=== PATIENT | male | born 1955 | race Caucasian/White ===

== ENCOUNTER 2019-12-18 09:24 | Inpatient (IN) ==
[2019-12-18] MEDS ORDERED: *HR* HYDROcodone/Acet 5/325 mg TABLET PO PRN (11:26)
[2019-12-18] MEDS ORDERED: Naloxone 0.4 MG/ML INJ IVP PRN (11:26)
[2019-12-18] MEDS ORDERED: Ondansetron 4 MG/2 ML VIAL IVP PRN (11:26)
[2019-12-18] MEDS ORDERED: Ipratropium/Albuterol Neb 3 ML IH PRN (11:49)
[2019-12-18] MEDS ORDERED: Nitroglycerin 0.4 MG TAB.SUBL SL PRN (11:50)
[2019-12-18 12:05] LABS: Basophils # 0.1 K/mcL (0.0-0.2); Eosinophils # 0.1 K/mcL (0.0-0.6); Eosinophils % 1.3 %; Hematocrit 46.5 % (37.5-50.1); Hemoglobin 14.7 g/dL (12.9-16.9); Immature Granulocytes % 0.3 % (0-4); Lymphocytes # 1.4 K/mcL (0.6-4.6); Lymphocytes % 14.1 %; Mean Corpuscular HGB Conc 31.6 g/dL (31.6-35.5); Mean Corpuscular Volume 91.7 fL (83.0-100.0); Mean Platelet Volume 9.9 fL (9.4-12.4); Monocytes % 10.6 %; Neutrophils # 7.2 K/mcL (1.6-8.9); Platelet Count 186 K/mcL (140-400); Red Blood Count 5.07 M/mcL (4.19-5.50); Red Cell Distribution Width 12.7 % (11.5-14.5); Segmented Neutrophils % 72.7 %; White Blood Count 9.9 K/mcL (4.3-11.1)
[2019-12-18] MEDS ORDERED: Sennosides/Docusate Sodium TABLET PO PRN (12:13)
[2019-12-18 12:15] LABS: INR 1.2; Prothrombin Time 14.1 Seconds (9.4-12.1)
[2019-12-18 12:18] LABS: Activated Partial Thrombo Time 33.4 Seconds (26.0-36.0)
[2019-12-18 12:21] LABS: Albumin 4.3 g/dL (3.5-5.7); Albumin/Globulin Ratio 1.5 (1.1-2.2); Bilirubin,Total 0.9 mg/dL (0.3-1.0); Calcium 9.4 mg/dL (8.6-10.3); Globulin 2.8 g/dL (2.4-3.5); Phosphorous 3.8 mg/dL (2.7-4.5); Potassium 4.4 mEq/L (3.5-5.1); Total Protein 7.1 g/dL (6.4-8.9)
[2019-12-18] MEDS: *HR* OxyCODONE/APAP 7.5/325 TABLET PO PRN ×2 (13:30→21:02)
[2019-12-18] MEDS: Bicalutamide 50 MG TABLET PO SCH (15:04)
[2019-12-18] MEDS: Morphine Sulfate ER (12 HR) 15 MG TABLET.ER PO SCH (17:38)
[2019-12-18] MEDS: Budesonide/Formoterol 160/4.5 1 PUFF INH IH SCH (20:04)
[2019-12-18] MEDS ORDERED: Perflutren Lipid Microsphere 1.3 ML in 0.9 % Sodium Chloride 8.7 ML IVP ONE (21:36)
[2019-12-19] MEDS: *HR* OxyCODONE/APAP 7.5/325 TABLET PO PRN ×2 (04:17→15:57)
[2019-12-19] MEDS ORDERED: Morphine Sulfate 2 MG/ML SYRINGE IVP STA (05:49)
[2019-12-19] MEDS ORDERED: Dextrose Gel 15 GM/37.5 ML TUBE PO ONE (05:52)
[2019-12-19] MEDS: Morphine Sulfate ER (12 HR) 15 MG TABLET.ER PO SCH ×2 (05:59→17:48)
[2019-12-19] MEDS ORDERED: 0.9 % Sodium Chloride 500 ML ONE ×2 (08:58→09:08)
[2019-12-19] MEDS ORDERED: Lidocaine/EPI 1:100k 1% 50 ML VIAL ONE (08:58)
[2019-12-19] MEDS ORDERED: *HR* Midazolam HCl 2 MG/2 ML VIAL IVP ONE (09:05)
[2019-12-19] MEDS ORDERED: *HR* FentaNYL (PF) 100 MCG/2 ML VIAL IVP ONE (09:05)
[2019-12-19] MEDS ORDERED: Ampicillin/Sulbactam 1,500 MG in 0.9 % Sodium Chloride Mini Bag 100 ML IVPB ONE (09:07)
[2019-12-19] MEDS: Bicalutamide 50 MG TABLET PO SCH (10:40)
[2019-12-19] MEDS ORDERED: 0.9 % Sodium Chloride 1,000 ML IVC SCH (10:45)
[2019-12-19] MEDS: *HR* Heparin 5,000 UNIT/ML VIAL SQ SCH ×2 (10:50→17:49)
[2019-12-19 11:04] LABS: Hematocrit 45.1 % (37.5-50.1); Hemoglobin 14.3 g/dL (12.9-16.9); Mean Corpuscular HGB Conc 31.7 g/dL (31.6-35.5); Mean Corpuscular Hemoglobin 28.8 pg (28.0-33.3); Mean Corpuscular Volume 90.7 fL (83.0-100.0); Mean Platelet Volume 9.9 fL (9.4-12.4); Platelet Count 176 K/mcL (140-400); Red Blood Count 4.97 M/mcL (4.19-5.50); Red Cell Distribution Width 12.4 % (11.5-14.5); White Blood Count 10.8 K/mcL (4.3-11.1)
[2019-12-19] MEDS: Budesonide/Formoterol 160/4.5 1 PUFF INH IH SCH ×2 (11:08→22:00)
[2019-12-19 11:16] LABS: Calcium 9.3 mg/dL (8.6-10.3); Potassium 4.6 mEq/L (3.5-5.1)
[2019-12-19] MEDS ORDERED: Lidocaine -MPF 2% 2 ML VIAL ONE (13:16)
[2019-12-19 13:22] LABS: Bilirubin,Urine Small (Negative); Blood,Urine Negative (Negative); Clarity,Urine Clear (Clear); Color,Urine Yellow (Yellow); Glucose,Urine (UA) Normal (Normal); Ketones,Urine 40 mg/dL (Negative); Leukocyte Esterase,Urine Negative (Negative); Nitrite,Urine Negative (Negative); PH,Urine 5.5 pH Units (5.0-8.0); Protein,Urine 30 mg/dL (Neg-Trace); Specific Gravity,Urine > 1.030 (1.010-1.025); Urobilinogen,Urine Normal (Normal)
[2019-12-19 13:24] LABS: Hyaline Casts,Urine None Seen per lpf (None-Few); RBC,Urine 0-3 per hpf (0-3); Squamous Epithelial Cell,Urine Many per lpf (None-Few)
[2019-12-19] MEDS ORDERED: Ringers Solution, Lactated 500 ML IVC SCH (13:30)
[2019-12-19 13:46] LABS: Bacteria,Urine Few per hpf (None-Few)
[2019-12-19] MEDS: amLODIPine 5 MG TABLET PO SCH (15:58)
[2019-12-19] MEDS: Atropine Sulfate 1% 40 DROP/2 ML BOTTLE LEFT EYE SCH (17:48)
[2019-12-20] MEDS: *HR* OxyCODONE/APAP 7.5/325 TABLET PO PRN (03:21)
[2019-12-20 04:00] LABS: Calcium 9.2 mg/dL (8.6-10.3); Potassium 4.8 mEq/L (3.5-5.1)
[2019-12-20] MEDS: *HR* Heparin 5,000 UNIT/ML VIAL SQ SCH (05:58)
[2019-12-20] MEDS: Morphine Sulfate ER (12 HR) 15 MG TABLET.ER PO SCH (05:58)
[2019-12-20] MEDS: Budesonide/Formoterol 160/4.5 1 PUFF INH IH SCH (07:23)
[2019-12-20] MEDS: Atropine Sulfate 1% 40 DROP/2 ML BOTTLE LEFT EYE SCH (08:39)
[2019-12-20] MEDS: Bicalutamide 50 MG TABLET PO SCH (08:39)
[2019-12-20] MEDS: amLODIPine 5 MG TABLET PO SCH (08:39)
[2019-12-20 11:36] VITALS: BP 111/69
== END 2019-12-20 13:26 | disposition home or self-care (01) | DRG 722 ==
LOC: 2ANU → SUATTDRO 11:19
PROVIDERS: ADMIT Internal Medicine; ATTEND Internal Medicine

== ENCOUNTER 2020-08-09 08:30 | Inpatient (IN) ==
[2020-08-09] MEDS ORDERED: Isovue-370 500 ML BOTTLE IVP ONE ×2 (08:40)
[2020-08-09] MEDS ORDERED: 0.9 % Sodium Chloride 1,000 ML IVC ONE (08:43)
[2020-08-09] MEDS ORDERED: Ondansetron 4 MG/2 ML VIAL IVP ONE (08:43)
[2020-08-09 09:30] LABS: Basophils # 0.1 K/mcL (0.0-0.2); Basophils % 0.7 %; Eosinophils # 0.1 K/mcL (0.0-0.6); Eosinophils % 0.6 %; Hematocrit 42.6 % (37.5-50.1); Hemoglobin 13.4 g/dL (12.9-16.9); Immature Granulocytes % 0.4 % (0-4); Lymphocytes # 0.7 K/mcL (0.6-4.6); Mean Corpuscular HGB Conc 31.5 g/dL (31.6-35.5); Mean Corpuscular Hemoglobin 28.9 pg (28.0-33.3); Mean Corpuscular Volume 91.8 fL (83.0-100.0); Mean Platelet Volume 9.7 fL (9.4-12.4); Monocytes # 0.7 K/mcL (0.0-1.3); Monocytes % 6.6 %; Neutrophils # 9.6 K/mcL (1.6-8.9); Platelet Count 214 K/mcL (140-400); Red Blood Count 4.64 M/mcL (4.19-5.50); Red Cell Distribution Width 13.2 % (11.5-14.5); Segmented Neutrophils % 85.7 %; White Blood Count 11.2 K/mcL (4.3-11.1)
[2020-08-09 09:51] LABS: Albumin/Globulin Ratio 1.7 (1.1-2.2); Bilirubin,Direct 0.2 mg/dL (0.0-0.2); Bilirubin,Indirect 0.7 mg/dL (0.0-1.0); Bilirubin,Total 0.9 mg/dL (0.3-1.0); Globulin 2.4 g/dL (2.4-3.5); Total Protein 6.4 g/dL (6.4-8.9)
[2020-08-09 09:52] LABS: BUN/Creatinine Ratio 10 (6-26); Blood Urea Nitrogen 13 mg/dL (8-23); Calcium 8.4 mg/dL (8.6-10.3); Carbon Dioxide 20 mEq/L (23-29); Chloride 107 mEq/L (98-107); Glucose 97 mg/dL (70-105); Osmolality,Calculated 286 (280-300); Sodium 138 mEq/L (136-145); Troponin I < 0.03 ng/mL (< 0.04); eGFR For African Americans > 60 (> 60); eGFR For Non-African Americans 56 (> 60)
[2020-08-09 10:10] LABS: Adenovirus Not Detected (Not Detect); Bordetella Pertussis Not Detected (Not Detect); Chlamydophila pneumoniae Not Detected (Not Detect); Coronavirus 229E Not Detected (Not Detect); Coronavirus HKU1 Not Detected (Not Detect); Coronavirus NL63 Not Detected (Not Detect); Coronavirus OC43 Not Detected (Not Detect); Human Metapneumovirus Not Detected (Not Detect); Human Rhinovirus/Enterovirus Not Detected (Not Detect); Influenza A Subtype 2009 H1 Not Detected (Not Detect); Influenza B Not Detected (Not Detect); Mycoplasma pneumoniae Not Detected (Not Detect); Parainfluenza Virus 1 Not Detected (Not Detect); Parainfluenza Virus 2 Not Detected (Not Detect); Parainfluenza Virus 3 Not Detected (Not Detect); Parainfluenza Virus 4 Not Detected (Not Detect); Respiratory Syncytial Virus Not Detected (Not Detect); SARS-CoV-2 Not Detected (Not Detect)
[2020-08-09 11:50] LABS: Bacteria,Urine Few per hpf (None-Few); Bilirubin,Urine Negative (Negative); Blood,Urine Moderate (Negative); Clarity,Urine Clear (Clear); Color,Urine Light-Yellow (Yellow); Glucose,Urine (UA) Normal (Normal); Ketones,Urine 10 mg/dL (Negative); Leukocyte Esterase,Urine Large (Negative); Mucus,Urine Few per lpf (None-Few); Nitrite,Urine Negative (Negative); Protein,Urine 30 mg/dL (Neg-Trace); RBC,Urine 30-50 per hpf (0-3); Specific Gravity,Urine 1.013 (1.010-1.025); Squamous Epithelial Cell,Urine Few per hpf (None-Few); Urobilinogen,Urine Normal (Normal); WBC,Urine 50-100 per hpf (0-3)
[2020-08-09] MEDS ORDERED: cefTRIAXone 1,000 MG in Water for inj. (sterile) 10 ML IVP ONE (11:52)
[2020-08-09] MEDS ORDERED: Azithromycin 500 MG in 0.9 % Sodium Chloride 250 ML IVPB ONE (13:01)
[2020-08-09] MEDS ORDERED: Naloxone 0.4 MG/ML INJ IVP PRN (13:25)
[2020-08-09] MEDS ORDERED: Ondansetron 4 MG/2 ML VIAL IVP PRN (13:25)
[2020-08-09 13:42] LABS: Magnesium 1.8 mg/dL (1.6-2.6)
[2020-08-09] MEDS ORDERED: Lidocaine/EPI 1:100k 1% 50 ML VIAL ONE (14:00)
[2020-08-09] MEDS ORDERED: 0.9 % Sodium Chloride 500 ML ONE ×2 (14:00→14:12)
[2020-08-09] MEDS ORDERED: *HR* FentaNYL (PF) 100 MCG/2 ML VIAL IVP ONE (14:01)
[2020-08-09] MEDS ORDERED: *HR* Midazolam HCl 5 MG/5 ML VIAL IVP ONE (14:01)
[2020-08-09] MEDS ORDERED: Clindamycin 900 MG/50 ML 900 MG/50 ML IV.SOLN IVPB ONE ×2 (14:02→18:00)
[2020-08-09] MEDS ORDERED: *HR* FentaNYL (PF) 100 MCG/2 ML VIAL ONE (14:12)
[2020-08-09] MEDS ORDERED: *HR* Midazolam HCl 2 MG/2 ML VIAL ONE (14:12)
[2020-08-09 14:23] LABS: INR 1.2; Prothrombin Time 13.6 Seconds (9.4-12.1)
[2020-08-09 14:26] LABS: Activated Partial Thrombo Time 31.5 Seconds (26.0-36.0)
[2020-08-09] MEDS ORDERED: Isovue-300 50ML VIAL IVP ONE (15:05)
[2020-08-09] MEDS: 0.9 % Sodium Chloride 1,000 ML IVC SCH (17:25)
[2020-08-09] MEDS: *HR* Heparin 5,000 UNIT/ML VIAL SQ SCH (17:33)
[2020-08-09] MEDS: Sennosides/Docusate Sodium TABLET PO SCH (19:52)
[2020-08-09] MEDS: Budesonide/Formoterol 160/4.5 1 PUFF INH IH SCH (22:17)
[2020-08-10] MEDS: 0.9 % Sodium Chloride 1,000 ML IVC SCH (05:07)
[2020-08-10] MEDS: *HR* Heparin 5,000 UNIT/ML VIAL SQ SCH (05:08)
[2020-08-10 05:18] LABS: Basophils # 0.1 K/mcL (0.0-0.2); Basophils % 0.6 %; Eosinophils # 0.1 K/mcL (0.0-0.6); Eosinophils % 0.8 %; Hematocrit 40.5 % (37.5-50.1); Hemoglobin 12.9 g/dL (12.9-16.9); Immature Granulocytes % 0.4 % (0-4); Lymphocytes # 0.9 K/mcL (0.6-4.6); Lymphocytes % 11.2 %; Mean Corpuscular HGB Conc 31.9 g/dL (31.6-35.5); Mean Corpuscular Hemoglobin 29.3 pg (28.0-33.3); Mean Platelet Volume 9.8 fL (9.4-12.4); Monocytes # 0.6 K/mcL (0.0-1.3); Monocytes % 8.1 %; Neutrophils # 6.2 K/mcL (1.6-8.9); Platelet Count 196 K/mcL (140-400); Red Cell Distribution Width 13.1 % (11.5-14.5); Segmented Neutrophils % 78.9 %; White Blood Count 7.9 K/mcL (4.3-11.1)
[2020-08-10 05:29] LABS: BUN/Creatinine Ratio 9 (6-26); Blood Urea Nitrogen 12 mg/dL (8-23); Calcium 8.9 mg/dL (8.6-10.3); Carbon Dioxide 22 mEq/L (23-29); Chloride 104 mEq/L (98-107); Glucose 99 mg/dL (70-105); Magnesium 1.8 mg/dL (1.6-2.6); Osmolality,Calculated 294 (280-300); Phosphorous 2.7 mg/dL (2.7-4.5); Potassium 3.6 mEq/L (3.5-5.1); Sodium 142 mEq/L (136-145); eGFR For African Americans > 60 (> 60); eGFR For Non-African Americans 53 (> 60)
[2020-08-10] MEDS: Budesonide/Formoterol 160/4.5 1 PUFF INH IH SCH (08:21)
[2020-08-10] MEDS ORDERED: amLODIPine 5 MG TABLET PO SCH (09:00)
[2020-08-10] MEDS ORDERED: cefTRIAXone 1,000 MG in Water for inj. (sterile) 10 ML IVP SCH (09:00)
[2020-08-10] MEDS ORDERED: Atropine Sulfate 1% 40 DROP/2 ML BOTTLE LEFT EYE SCH (09:00)
[2020-08-10] MEDS: Sennosides/Docusate Sodium TABLET PO SCH (09:06)
[2020-08-10] MEDS ORDERED: Albuterol Neb 1.25 MG/3 ML VIAL IH PRN (09:14)
[2020-08-10 10:53] VITALS: BP 129/52
[2020-08-10] MEDS ORDERED: 0.9 % Sodium Chloride 1,000 ML IVC SCH (11:45)
[2020-08-10] MEDS ORDERED: Azithromycin 500 MG in 0.9 % Sodium Chloride 250 ML IVPB SCH (14:00)
[2020-08-10] MEDS ORDERED: Morphine Sulfate ER (12 HR) 15 MG TABLET.ER PO SCH (18:00)
[2020-08-10] MEDS ORDERED: Gabapentin 300 MG CAPSULE PO SCH (21:00)
== END 2020-08-10 15:47 | disposition hospice, home (50) | DRG 689 ==
LOC: EMEROOARM 08:30 → 3BNU 08:30 → SUATTDRO 17:26
PROVIDERS: ADMIT Internal Medicine; ATTEND Internal Medicine